=== PATIENT | female | born 1995 | race Caucasian/White ===

== ENCOUNTER 2016-10-19 08:55 | Inpatient (IN) | payer OTHER ==
[~2016-10-19] VITALS: Ht 154.9 cm; Wt 94.3 kg
[2016-10-20 04:32] LABS: HEMOGLOBIN 9.2 gm/dl (12.3-15.3)
[2016-10-21] MEDS ORDERED: IBUPROFEN600 MG PO (16:33)
== END 2016-10-21 15:22 | disposition home or self-care (01) | DRG 766 ==
LOC: OB 08:55
PROVIDERS: ADMIT Obstetrics & Gynecology
PROC: 10D00Z1 Extraction of Products of Conception, Low, Open Approach (ICD-10-PCS; principal; 2016-10-19 09:15)
PROC: 3E0234Z Introduction of Serum, Toxoid and Vaccine into Muscle, Percutaneous Approach (ICD-10-PCS; 2016-10-20)
DX: O34.219 Maternal care for unspecified type scar from previous cesarean delivery (principal); Z3A.39 39 weeks gestation of pregnancy; Z37.0 Single live birth; O99.214 Obesity complicating childbirth; Z68.39 Body mass index [BMI] 39.0-39.9, adult; Z79.899 Other long term (current) drug therapy; Z88.0 Allergy status to penicillin; Z23 Encounter for immunization
CPT/HCPCS: 36415; 59025; 81001; 82800; 85014; 85018; 85025; 90715; C9113; J1580; J1885; J2270; J2274; J2405; J2590; J2765; J3010; J7120